=== PATIENT | female | born 1990 | race Caucasian/White ===

== ENCOUNTER 2017-03-02 07:55 | Emergency (ER) | payer BC ==
[~2017-03-02] VITALS: Ht 165.1 cm; Wt 61.5 kg
[2017-03-02 07:56] VITALS: BP 115/65; PULSE 108; RESP 20; TEMP 99.4; O2SAT 100
[2017-03-02] MEDS ORDERED: AMOX875T PO (08:04)
--- NOTE | 2017-03-02 08:06 | PD ---
HPI Chief Complaint: ENT Complaint Time Seen by Provider: 07:58 Travel History International Travel<30 days: No Contact w/Intl Traveler<30days: No Traveled to known affect area: No History of Present Illness HPI 26 her old female here with sore throat. Symptoms started yesterday. It hurts to swallow. Associated with chills. She denies rash, cough or congestion, recent travel, abdominal pain, nausea or vomiting. She reports that her daughter was recently diagnosed with "strep throat" and had a positive group A strep antigen test. No other sick contacts. No other complaints. PFSH Past Medical History ?: Not LMP: 03/01/17 Social History Alcohol Use: No Tobacco Use: No Allergies-Medications (Allergen,Severity, Reaction): Coded Allergies: No Known Allergies (Unverified , 03/02/17) Review of Systems Except as stated in HPI: all other systems reviewed are Neg Physical Exam Narrative GENERAL: Well-developed well-nourished female in no acute distress SKIN: Warm and dry. HEAD: Atraumatic. Normocephalic. EYES: Pupils equal and round. No scleral icterus. No injection or drainage. ENT: No nasal bleeding or discharge. Mucous membranes pink and moist. Oral pharyngeal erythema with exudate formation. Uvula midline with no mass effect. NECK: Trachea midline. No JVD. Mild tender anterior cervical lymphadenopathy. CARDIOVASCULAR: Regular rate and rhythm. No murmur appreciated. RESPIRATORY: No accessory muscle use. Clear to auscultation. Breath sounds equal bilaterally. Data Data Last Documented VS Vital Signs Date Time Temp Pulse Resp B/P Pulse Ox O2 Delivery O2 Flow Rate FiO2 03/02/17 07:56 99.4 108 20 115/65 100 Room Air [facility] Medical Decision Making Medical Screen Exam Complete: Yes Emergency Medical Condition: Yes Medical Record Reviewed: Yes Differential Diagnosis Exudate pharyngitis, tonsillitis, peritonsillar abscess, infectious mononucleosis, herpangina, epiglottitis, retropharyngeal abscess Narrative Course 26-year-old female presents with 2 days of sore throat and chills. On examination she has exudative pharyngitis, tender anterior cervical lymphadenopathy. Her daughter recently tested positive for group A strep and given his history it is reasonable to treat her empirically for same. She will be discharged with amoxicillin. Diagnosis Primary Impression: Exudative pharyngitis Additional Instructions: Antibiotic as prescribed. Stay well hydrated well-nourished. Take over-the- counter Tylenol or Motrin for discomfort per dosing instructions on the bottle. Follow-up with primary care physician as needed. Return for any emergent medical conditions. Med/Other Pt SpecificInfo: Prescription(s) given Scripts Amoxicillin 875 Mg Dxc600 Mg PO BID 10 Days Ref 0 Prov:Krystyna Leal MD 03/02/17 Disposition: 01 DISCHARGE HOME Condition: Stable Rafael Krishnan Mar 02, 2017 08:06
== END 2017-03-02 08:20 | disposition home or self-care (01) ==
LOC: NEPK 07:55
DX: J02.9 Acute pharyngitis, unspecified (principal)
CPT/HCPCS: 99283